=== PATIENT | female | born 2000 | race Caucasian/White ===

== ENCOUNTER 2020-04-29 03:52 | Emergency (ER) | payer BC ==
[2020-04-29 04:12] VITALS: BP 118/75
[2020-04-29 04:50] LABS: APPEARANCE,URINE CLEAR; BILIRUBIN,URINE NEGATIVE (NEGATIVE); COLOR,URINE STRAW; GLUCOSE, URINE NEGATIVE (NEGATIVE); KETONES,URINE NEGATIVE (NEGATIVE); LEUKOCYTE ESTERASE,URINE NEGATIVE (NEGATIVE); NITRITE,URINE NEGATIVE (NEGATIVE); PROTEIN,URINE NEGATIVE (NEGATIVE); URINE SPECIFIC GRAVITY 1.003; UROBILINOGEN,URINE NEGATIVE mg/dL (<2.0)
--- NOTE | 2020-04-29 07:38 | ER Document Report ---
ED Medical Screen (RME) - General Chief Complaint: Abdominal Pain Stated Complaint: STOMACH PAIN DIARRHEA POSSIBLE FEVER Time Seen by Provider: 04/29/20 07:29 - HPI Notes: Patient is a 19 y/o female who presents with diffuse abdominal pain for the past two weeks. She endorses nausea and diarrhea but denies vomiting, fever, and dysuria. She was seen by her primary care about a week ago for the same symptoms and was diagnosed with a UTI and placed on an antibiotic. Patient cannot recall the name of the antibiotic and she has only taken one dose as she picked the script up yesterday. - Related Data Allergies/Adverse Reactions: No Known Allergies Allergy (Unverified 04/29/20 04:12) Home Medications: ADD Past Medical History - Social History Frequency of alcohol use: None Drug Abuse: Marijuana Physical Exam - Vital signs Vitals: Temp Pulse Resp BP Pulse Ox 97.8 F 97 H 20 118/75 100 04/29/20 04:09 04/29/20 04:09 04/29/20 04:09 04/29/20 04:09 04/29/20 04:09 - Abdominal Inspection: Normal Distension: No distension Bowel sounds: Normal Tenderness: Tender - diffusely Course - Re-evaluation Re-evalutation: I have greeted and performed a rapid initial assessment of this patient. A comprehensive ED assessment and evaluation of the patient, analysis of test results and completion of medical decision making process will be conducted by an additional ED providers. - Vital Signs Vital signs: Temp Pulse Resp BP Pulse Ox 97.3 F 97 H 20 118/75 97 04/29/20 04:10 04/29/20 04:10 04/29/20 04:10 04/29/20 04:10 04/29/20 04:10
[2020-04-29 07:51] LABS: ABSOLUTE LYMPHOCYTES (AUTO) 1.7 10^3/uL (0.5-4.7); ABSOLUTE MONOCYTES (AUTO) 0.3 10^3/uL (0.1-1.4); BASOPHILS % (AUTO) 0.6 % (0-2); EOSINOPHILS % (AUTO) 0.1 % (0-6); HEMATOCRIT 43.8 % (36.0-47.0); HEMOGLOBIN 15.4 g/dL (12.0-15.5); LYMPHOCYTES % (AUTO) 21.4 % (13-45); MEAN CORPUSCULAR HEMOGLOBIN 30.9 pg (27.0-33.4); MEAN CORPUSCULAR HGB CONC 35.2 g/dL (32.0-36.0); MEAN CORPUSCULAR VOLUME 88 fl (80-97); PLATELET COUNT 292 10^3/uL (150-450); RED BLOOD COUNT 4.97 10^6/uL (3.72-5.28); RED CELL DISTRIBUTION WIDTH 12.7 % (11.5-14.0); SEGMENTED NEUTROPHILS % (AUTO) 73.9 % (42-78); TOTAL CELLS COUNTED % (AUTO) 100 %; WHITE BLOOD COUNT 8.1 10^3/uL (4.0-10.5)
[2020-04-29 08:07] LABS: ALBUMIN 5.3 g/dL (3.7-5.6); ALKALINE PHOSPHATASE 77 U/L (50-135); ANION GAP 13 (5-19); ASPARTATE AMINO TRANSFERASE 20 U/L (5-30); BILIRUBIN,TOTAL 0.7 mg/dL (0.2-1.3); BLOOD UREA NITROGEN 6 mg/dL (7-20); CALCIUM 10.8 mg/dL (8.4-10.2); CARBON DIOXIDE 23 mmol/L (22-30); CHLORIDE 106 mmol/L (98-107); GLUCOSE 111 mg/dL (75-110); POTASSIUM 4.3 mmol/L (3.6-5.0); TOTAL PROTEIN 8.6 g/dL (6.3-8.2)
--- NOTE | 2020-04-29 09:05 | ER Document Report ---
ED General - General Chief Complaint: Abdominal Pain Stated Complaint: STOMACH PAIN DIARRHEA POSSIBLE FEVER Time Seen by Provider: 04/29/20 07:29 Mode of Arrival: Ambulatory Information source: Patient - HPI Notes: Patient complains of abdominal pain. It is primarily epigastric. It does radiate from the epigastric area down into the lower quadrants. Nothing makes it better or worse. It has been going on for a little over a week and is relatively constant. Last night became worse so she came to the hospital. She states she does not have any problem with her menstrual cycles and is currently on control which causes her to not have menstrual cycles. She states that she was diagnosed with a urinary tract infection 1 week ago but did not start antibiotics till yesterday. She does however deny any type of dysuria urgency or frequency. She has had no fevers. No cough cold or congestion. No significant past medical history or surgeries. She does not believe that she is . She states that when she gets lower abdominal cramping that does give her diarrhea. She has had some nausea but no vomiting. She has had a decreased appetite. - Related Data Allergies/Adverse Reactions: No Known Allergies Allergy (Unverified 04/29/20 04:12) Home Medications: ADD Past Medical History - General Information source: Patient - Social History Smoking Status: Never Smoker Frequency of alcohol use: None Drug Abuse: Marijuana Family History: Reviewed & Not Pertinent Review of Systems - Review of Systems Constitutional: denies: Chills, Fever Cardiovascular: denies: Chest pain, Palpitations Respiratory: denies: Cough, Short of breath, Sputum -: Yes All other systems reviewed and negative Physical Exam - Vital signs Vitals: Temp Pulse Resp BP Pulse Ox 97.8 F 97 H 20 118/75 100 04/29/20 04:09 04/29/20 04:09 04/29/20 04:09 04/29/20 04:09 04/29/20 04:09 Interpretation: Normal - General General appearance: Appears well, Alert - HEENT Head: Normocephalic, Atraumatic Eyes: Normal Pupils: PERRL - Respiratory Respiratory status: No respiratory distress Chest status: Nontender Breath sounds: Normal Chest palpation: Normal - Cardiovascular Rhythm: Regular Heart sounds: Normal auscultation Murmur: No - Abdominal Inspection: Normal Distension: No distension Bowel sounds: Normal Tenderness: Tender - Minimal diffuse tenderness to palpation no rebound or guarding. Organomegaly: No organomegaly - Back Back: Normal, Nontender - Extremities General upper extremity: Normal inspection, Nontender, Normal color, Normal ROM, Normal temperature General lower extremity: Normal inspection, Nontender, Normal color, Normal ROM, Normal temperature, Normal weight bearing. No: Reggie's sign - Neurological Neuro grossly intact: Yes Cognition: Normal Orientation: AAOx4 [place] Coma Scale Eye Opening: Spontaneous [place] Coma Scale Verbal: Oriented [place] Coma Scale Motor: Obeys Commands [place] Coma Scale Total: 15 Speech: Normal Motor strength normal: LUE, RUE, LLE, RLE Sensory: Normal - Psychological Associated symptoms: Normal affect, Normal mood - Skin Skin Temperature: Warm Skin Moisture: Dry Skin Color: Normal Course - Re-evaluation Re-evalutation: 04/29/20 10:56 Patient comes in with a week of intermittent abdominal pain that is worsening. She is also had some nausea and some diarrhea. She does have stones in her gallbladder however there are no signs of cholecystitis. It is possible this is biliary colic. I will discharge the patient home with referral to outpatient surgery as well as some instructions on gallbladder disease. - Vital Signs Vital signs: Temp Pulse Resp BP Pulse Ox 97.3 F 97 H 20 118/75 97 04/29/20 04:10 04/29/20 04:10 04/29/20 04:10 04/29/20 04:10 04/29/20 04:10 - Laboratory Result Diagrams: 04/29/20 07:27 04/29/20 07:27 Laboratory results interpreted by me: 04/29/20 07:27 BUN 6 L Glucose 111 H Calcium 10.8 H Total Protein 8.6 H - Diagnostic Test Radiology reviewed: Image reviewed, Reports reviewed Discharge - Discharge Clinical Impression: Biliary colic Condition: Stable Disposition: HOME, SELF-CARE Instructions: Gallbladder Disease ([facility]) Prescriptions: Ondansetron [Zofran Odt 4 mg Tablet] 1 - 2 tab PO Q4HP PRN #10 tab.rapdis PRN Reason: Tramadol HCl [Ultram] 50 mg PO Q6 PRN 3 Days #12 tablet PRN Reason: Forms: Return to Work Referrals: RUBIA BURTON MD [ACTIVE STAFF] - Follow up in 1 week
--- NOTE | 2020-04-29 09:28 | RADIOLOGY REPORT (SQ) ---
EXAM DESCRIPTION: CT ABD/PELVIS NO ORAL OR IV IMAGES COMPLETED DATE/TIME: 04/29/2020 9:02 am REASON FOR STUDY: diffuse abd pain/diarrhea COMPARISON: None. TECHNIQUE: CT scan of the abdomen and pelvis performed without intravenous or oral contrast. Images reviewed with lung, soft tissue, and bone windows. Reconstructed coronal and sagittal MPR images revi ewed. All images stored on PACS. All CT scanners at this facility use dose modulation, iterative reconstruction, and/or weight based d osing when appropriate to reduce radiation dose to as low as reasonably achievable (ALARA). [facility]: Dose Right [facility]: CareDose [facility]: Dose Right [facility]: Teradose 4D [facility]: Smart Simparel RADIATION DOSE: CT Rad equipment meets quality standard of care and radiation dose reduction techniq ues were employed. CTDIvol: 3.7 mGy. DLP: 179 mGy-cm.mGy. LIMITATIONS: None. FINDINGS: LOWER CHEST: No significant findings. No nodules or infiltrates. NON-CONTRASTED LIVER, SPLEEN, ADRENALS: Evaluation limited by lack of IV contrast. No identified sign ificant masses. PANCREAS: No masses. No peripancreatic inflammatory changes. GALLBLADDER: Diffuse increased density in the gallbladder. No inflammatory changes to suggest cholecy stitis. RIGHT KIDNEY AND URETER: No suspicious masses. Assessment limited by lack of IV contrast. No signif icant calcifications. No hydronephrosis or hydroureter. LEFT KIDNEY AND URETER: No suspicious masses. Assessment limited by lack of IV contrast. No signifi cant calcifications. No hydronephrosis or hydroureter. AORTA AND RETROPERITONEUM: No aneurysm. No retroperitoneal masses or adenopathy. BOWEL AND PERITONEAL CAVITY: No obvious masses or inflammatory changes. No free fluid. APPENDIX: Normal. PELVIS, BLADDER, AND ABDOMINAL WALL:No abnormal masses. No free fluid. Bladder normal. BONES: No significant findings. OTHER: No other significant finding. IMPRESSION: 1. DIFFUSE INCREASED DENSITY IN THE GALLBLADDER WHICH MAY BE DUE TO SLUDGE AND/OR MULTIPLE SMALL STON ES. 2. NO OTHER SIGNIFICANT OR ACUTE PROCESS IN THE ABDOMEN OR PELVIS. COMMENT: Quality ID # [id number]: Final reports with documentation of one or more dose reduction techniques (e.g., Automated exposure control, adjustment of the mA and/or kV according to patient size, use of iterative reconstruction technique) TECHNICAL DOCUMENTATION: JOB ID: [id number] 2010 [employer]- All Rights Reserved Reading location - IP/workstation name: [email or web address]
--- NOTE | 2020-04-29 10:43 | RADIOLOGY REPORT (SQ) ---
EXAM DESCRIPTION: U/S ABDOMEN LIMITED W/O DOP IMAGES COMPLETED DATE/TIME: 04/29/2020 10:31 am REASON FOR STUDY: ruq pain COMPARISON: None. TECHNIQUE: Dynamic and static grayscale images acquired of the abdomen and recorded on PACS. Additio nal selected color Doppler and spectral images recorded. LIMITATIONS: None. FINDINGS: PANCREAS: No masses. Visualized pancreatic duct normal caliber. LIVER: No masses. Echotexture normal. LIVER VASCULATURE: Normal directional flow of the main portal vein and hepatic veins. GALLBLADDER: Limited visualization. Multiple shadowing calculi. No gallbladder wall thickening. No pericholecystic fluid. ULTRASOUND-DETECTED PEREZ'S SIGN: Negative. INTRAHEPATIC DUCTS AND COMMON DUCT: CBD and intrahepatic ducts normal caliber. No filling defects. INFERIOR VENA CAVA: Normal flow. AORTA: No aneurysm. RIGHT KIDNEY: Normal size. Normal echogenicity. No solid or suspicious masses. No hydronephrosis. No calcifications. PERITONEAL AND RIGHT PLEURAL SPACE: No ascites or effusions. OTHER: No other significant findings. IMPRESSION: GALLSTONES. NO OTHER SIGNIFICANT FINDINGS. TECHNICAL DOCUMENTATION: JOB ID: [id number] 2010 [employer]- All Rights Reserved Reading location - IP/workstation name: [email or web address]
== END 2020-04-29 11:23 | disposition home or self-care (01) ==
LOC: ER 03:52
DX: K80.20 Calculus of gallbladder without cholecystitis without obstruction (principal); N39.0 Urinary tract infection, site not specified; R11.0 Nausea; R19.7 Diarrhea, unspecified; F12.10 Cannabis abuse, uncomplicated; Z79.3 Long term (current) use of hormonal contraceptives; Z79.899 Other long term (current) drug therapy
CPT/HCPCS: 36415; 74176; 76705; 80053; 81001; 83690; 84702; 85025; 87086; 99285

== ENCOUNTER 2020-05-07 09:06 | Day surgery (SDC) | payer BC ==
[~2020-05-07 09:06] MED LIST: ACETAMINOPHEN 325 MG TABLET PO PRN; CEFAZOLIN 2 GM/D5W RTU 2 GM/50 ML RTUPB IV PRN; METRONIDAZOLE 500 MG/NS RTU 500 MG/100 ML RTUPB IV PRN
[2020-05-07] MEDS ORDERED: CEFAZOLIN 2 GM/D5W RTU 2 GM/50 ML RTUPB IV ONE (09:57)
[2020-05-07] MEDS ORDERED: METRONIDAZOLE 500 MG/NS RTU 500 MG/100 ML RTUPB IV ONE (09:57)
[2020-05-07] MEDS ORDERED: BUPIVACAINE INJ/PF LIPOSOME/PF 266 MG/20 ML SDV ONE (10:08)
[2020-05-07 10:10] LABS: ABSOLUTE BASOPHILS # (AUTO) 0.1 10^3/uL (0.0-0.2); ABSOLUTE MONOCYTES (AUTO) 0.4 10^3/uL (0.1-1.4); ABSOLUTE NEUT (AUTO) 3.6 10^3/uL (1.7-8.2); BASOPHILS % (AUTO) 0.9 % (0-2); EOSINOPHILS % (AUTO) 0.4 % (0-6); HEMATOCRIT 40.1 % (36.0-47.0); HEMOGLOBIN 13.9 g/dL (12.0-15.5); LYMPHOCYTES % (AUTO) 33.6 % (13-45); MEAN CORPUSCULAR HEMOGLOBIN 30.5 pg (27.0-33.4); MEAN CORPUSCULAR HGB CONC 34.8 g/dL (32.0-36.0); MEAN CORPUSCULAR VOLUME 88 fl (80-97); MONOCYTES % (AUTO) 6.2 % (3-13); PLATELET COUNT 240 10^3/uL (150-450); RED BLOOD COUNT 4.58 10^6/uL (3.72-5.28); RED CELL DISTRIBUTION WIDTH 12.4 % (11.5-14.0); SEGMENTED NEUTROPHILS % (AUTO) 58.9 % (42-78); TOTAL CELLS COUNTED % (AUTO) 100 %
[2020-05-07] MEDS ORDERED: MIDAZOLAM 2 MG/2 ML INJ ONE (10:10)
[2020-05-07] MEDS ORDERED: FENTANYL CITRATE INJ/PF 250 MCG/5 ML AMPULE ONE (10:10)
[2020-05-07] MEDS ORDERED: PROPOFOL INJ 200 MG/20 ML VIAL IV ONE (10:10)
[2020-05-07 10:27] LABS: ALKALINE PHOSPHATASE 63 U/L (50-135); AMYLASE 66 U/L (30-110); ANION GAP 13 (5-19); ASPARTATE AMINO TRANSFERASE 32 U/L (5-30); BILIRUBIN,TOTAL 0.7 mg/dL (0.2-1.3); BLOOD UREA NITROGEN 10 mg/dL (7-20); CALCIUM 10.3 mg/dL (8.4-10.2); CARBON DIOXIDE 23 mmol/L (22-30); CHLORIDE 105 mmol/L (98-107); GLUCOSE 91 mg/dL (75-110); POTASSIUM 4.3 mmol/L (3.6-5.0); TOTAL PROTEIN 7.9 g/dL (6.3-8.2)
[2020-05-07] MEDS ORDERED: MEPERIDINE HCL/PF INJ 25 MG/1 ML DISP.SYRIN IV PRN (11:03)
[2020-05-07] MEDS ORDERED: DIPHENHYDRAMINE HCL 50 MG/ML VIAL IV PRN (11:03)
[2020-05-07] MEDS ORDERED: MORPHINE SULFATE 10 MG/ML INJ IV PRN (11:03)
[2020-05-07] MEDS ORDERED: FENTANYL CITRATE INJ/PF 100 MCG/2 ML AMPUL IV PRN ×3 (11:03)
[2020-05-07] MEDS ORDERED: PROMETHAZINE HCL INJ 25 MG/1 ML VIAL IV PRN ×2 (11:03)
--- NOTE | 2020-05-07 11:19 | Operative Report ---
Nonrecallable Operative Report DATE OF SURGERY: 05/07/20 PREOPERATIVE DIAGNOSIS: Symptomatic cholelithiasis POSTOPERATIVE DIAGNOSIS: Same OPERATION: Laparoscopic cholecystectomy SURGEON: MALAIKA GARCIA ANESTHESIA: GA TISSUE REMOVED OR ALTERED: Gallbladder COMPLICATIONS: None ESTIMATED BLOOD LOSS: 10 cc INTRAOPERATIVE FINDINGS: See note PROCEDURE: After obtaining informed consent, the patient was taken to the operating room. General Anesthesia was induced; the arms were extended, and the abdomen was exposed, and prepped and draped in a sterile fashion. Instrumentation was set up for laparoscopic cholecystectomy. Surgical plan and surgical timeout were conducted. A vertical incision was made above the umbilicus, and a verres needle was inserted uneventfully into the peritoneal cavity. Pneumoperitoneum was established. The verres needle was removed and a 10 mm trocar was inserted and a 10 mm laparoscope was inserted. Visualization of the peritoneal cavity confirmed safe uneventful entry. Under direct visualization 3 additional 5 mm ports were established, one in the subxiphoid position and second in the subcostal position. Visualization of the hepatobiliary anatomy revealed no anatomic variations. A grasper was placed on the fundus of the gallbladder and the gall bladder is elevated over the right surface of the liver; a second grasper was used to grasp the infundibulum of the gallbladder. The neck of the gallbladder and junction with the cystic duct was dissected out. The Cystic artery was in its usual location medial and cephalad to the cystic duct. The cystic artery was surrounded with a right angle clamp, clipped twice proximally and divided with laparoscopic scissors. We now opened the triangle of Calot by dividing the peritoneal reflection on both the medial and lateral sides of the cystic duct infundibular junction. The critical view was obtained. We now milked the cystic duct of any possible stones, clipped the cystic duct approximately 2 times once distally and divided with scissors. The gallbladder was now removed from the undersurface of the liver using hook cautery dissection. Graspers were repositioned and the gallbladder was removed uneventfully from the abdominal cavity through the super umbilical port site incision. The specimen was examined, then passed off to pathology for permanent analysis. We returned to the peritoneal cavity check for bleeding, and evidence of bile leak, and there was none. We Confirmed satisfactory placement of clips on cystic duct and cystic artery were secured . At this point we felt the operation was complete. The subcutaneous tissue was then anesthetized with quarter percent Marcaine Sponge and needle counts are correct. All ports removed under direct visualization pneumoperitoneum evacuated, and 5 mm port wounds closed with 3-0 Vicryl suture, benzoin and Steri-Strips. The patient was extubated, and taken to the recovery room in stable condition.
--- NOTE | 2020-05-07 11:21 | Discharge Summary ---
Discharge Summary (SDC) - Discharge Final Diagnosis: Symptomatic cholelithiasis Date of Surgery: 05/07/20 Discharge Date: 05/07/20 Condition: Good Prescriptions: Tramadol HCl [Ultram 50 mg Tablet] 50 mg PO ASDIR PRN #20 tablet PRN Reason: Discharge Diet: As Tolerated Discharge Activity: Activity As Tolerated, No Lifting Over 10 Pounds Report the Following to Your Physician Immediately: Increase in Pain - Needs a follow-up appointment with me in 7 to 10 days, Yellow Skin
[2020-05-07] MEDS ORDERED: TRAMADOL HCL 50 MG TABLET PO PRN (11:22)
[2020-05-07] MEDS ORDERED: PROMETHAZINE HCL INJ 25 MG/1 ML VIAL ONE (11:39)
[2020-05-07] MEDS: FENTANYL CITRATE INJ/PF 100 MCG/2 ML AMPUL ONE ×3 (11:40→11:50)
[2020-05-07] MEDS ORDERED: TRAMADOL HCL 50 MG TABLET ONE (13:28)
[2020-05-07] MEDS ORDERED: TRAMADOL HCL 50 MG TABLET PO ONE (14:00)
[2020-05-07] MEDS ORDERED: ACETAMINOPHEN 1,000 MG/100 ML RTUPB IV ONE (14:32)
[2020-05-07 15:54] VITALS: BP 117/74
[2020-05-07] MEDS ORDERED: ROCURONIUM BROMIDE INJ 50 MG/5 ML VIAL IV ONE (16:03)
[2020-05-07] MEDS ORDERED: GLYCOPYRROLATE 1 MG/5 ML VIAL ONE (16:03)
[2020-05-07] MEDS ORDERED: ONDANSETRON HCL INJ/PF 4 MG/2 ML SDV ONE (16:03)
[2020-05-07] MEDS ORDERED: NEOSTIGMINE METHYLSULFATE 10 MG/10 ML VIAL ONE (16:03)
--- OUTSIDE RECORDS SUMMARY | 2020-05-08 18:17 | XMS REPORT ---
:2000 Author Organization [facility] Address [facility] [place] [address] [place] [id number] Care Team Providers Name Role Phone Unavailable Unavailable Unavailable Allergies, Adverse Reactions, Alerts This patient has no known allergies or adverse reactions. Medications This patient has no known medications. Problems This patient has no known problems. Procedures This patient has no known procedures. Results Test Description Test Time Test Comments Text Results Atomic Results Result Comments SED RATE BY MODIFIED SOSA 2020-04-24 00:00:00 2 CBC (INCLUDES DIFF/PLT) 2020-04-24 00:00:00 Test Item Value Reference Range Comments HEMOGLOBIN (test code = 29343656) 14.8 g/dL 11.7-15.5 MCHC (test code = 17176579) 32.6 g/dL 32.0-36.0 ABSOLUTE EOSINOPHILS (test code = 91375158) 40 cells/uL 15-5 00 RDW (test code = 76119713) 12.0 % 11.0-15.0 EOSINOPHILS (test code = 53148188) 0.6 % RED BLOOD CELL COUNT (test code = 80805209) 4.96 Million/uL 3.80 -5.10 ABSOLUTE BASOPHILS (test code = 68729044) 73 cells/uL 0-200 MCV (test code = 70553896) 91.5 fL 80.0-100.0 NEUTROPHILS (test code = 67017423) 57.3 % MPV (test code = 76514998) 10.8 fL 7.5-12.5 ABSOLUTE MONOCYTES (test code = 11873523) 389 cells/uL 200-95 0 HEMATOCRIT (test code = 69886651) 45.4 % 35.0-45.0 ABSOLUTE NEUTROPHILS (test code = 57340077) 3782 cells/uL 1500 -7800 LYMPHOCYTES (test code = 69106947) 35.1 % ABSOLUTE LYMPHOCYTES (test code = 49150248) 2317 cells/uL 850- 3900 BASOPHILS (test code = 62818572) 1.1 % PLATELET COUNT (test code = 50936182) 300 Thousand/uL 140-400 MCH (test code = 78595410) 29.8 pg 27.0-33.0 WHITE BLOOD CELL COUNT (test code = 66405903) 6.6 Thousand/uL 3. 8-10.8 MONOCYTES (test code = 81448143) 5.9 % URINALYSIS, COMPLETE W/REFLEX TO [id number] 00:00:00 Test Item Value Reference Range Comments LEUKOCYTE ESTERASE (test code = 97443895) TRACE NEGATI VE HYALINE CAST (test code = 06462086) NONE SEEN /LPF NONE SEEN APPEARANCE (test code = 47671865) CLEAR CLEAR RBC (test code = 02245799) 0-2 /HPF < OR = 2 WBC (test code = 67147534) 0-5 /HPF < OR = 5 NITRITE (test code = 73121916) POSITIVE NEGATIVE BACTERIA (test code = 91199301) MANY /HPF NONE SEEN KETONES (test code = 60472542) TRACE NEGATIVE OCCULT BLOOD (test code = 99419443) NEGATIVE NEGATIVE SPECIFIC GRAVITY (test code = 18098385) 1.023 1.001-1. 035 COLOR (test code = 44977776) DARK YELLOW YELLOW BILIRUBIN (test code = 65347218) NEGATIVE NEGATIVE PH (test code = 81808589) 6.0 5.0-8.0 PROTEIN (test code = 39794-5) NEGATIVE NEGATIVE SQUAMOUS EPITHELIAL CELLS (test code = 6-10 /HPF < OR = 5 00918691) GLUCOSE (test code = 37689910) NEGATIVE NEGATIVE C-REACTIVE [id number] 00:00:000.2COMPREHENSIVE METABOLIC [id number] 00:00:00 Test Item Value Reference Range Comments SODIUM (test code = 03617891) 140 mmol/L 135-146 ALT (test code = 87122560) 9 U/L 5-32 GLOBULIN (test code = 59882976) 2.9 g/dL (calc) 2.0-3.8 CHLORIDE (test code = 07366869) 103 mmol/L 98-110 BILIRUBIN, TOTAL (test code = 0.8 mg/dL 0.2-1.1 54446893) POTASSIUM (test code = 30951586) 4.6 mmol/L 3.8-5.1 AST (test code = 54524178) 14 U/L 12-32 eGFR (test code = 117 mL/min/1.73m2 > OR = 60 89855214) UREA NITROGEN (BUN) (test code = 8 mg/dL 7-20 79651723) ALKALINE PHOSPHATASE (test code = 68 U/L 36-128 76212398) eGFR NON-AFR. WELSH (test code = 101 mL/min/1.73m2 > OR = 60 62328074) ALBUMIN/GLOBULIN RATIO (test code = 1.7 (calc) 1.0-2.5 20111576) PROTEIN, TOTAL (test code = 49464403) 7.9 g/dL 6.3-8.2 ALBUMIN (test code = 31051977) 5.0 g/dL 3.6-5.1 CREATININE (test code = 52758139) 0.84 mg/dL 0.50-1.00 CARBON DIOXIDE (test code = 54343093) 27 mmol/L 20-32 BUN/CREATININE RATIO (test code = NOT APPLICABLE (calc) 6-22 07616770) GLUCOSE (test code = 76223151) 95 mg/dL 65-99 CALCIUM (test code = 69641950) 10.5 mg/dL 8.9-10.4 [id number] 00:00:0011 Social History This patient has no known social history. Vital Signs This patient has no known vital signs.
== END 2020-05-07 15:00 | disposition home or self-care (01) ==
LOC: OROUT 09:06
PROVIDERS: ATTEND Surgery
DX: K80.10 Calculus of gallbladder with chronic cholecystitis without obstruction (principal); Z03.818 Encounter for observation for suspected exposure to other biological agents ruled out; F12.90 Cannabis use, unspecified, uncomplicated; R10.9 Unspecified abdominal pain
CPT/HCPCS: 47562; 86900; 86901; 36415; 86850; 82150; 85025; 81025; 80076; 80048; 88304 ×2; 00790; U0003; J2250; J3490 ×3; J3010 ×2; J2710; J2550; J2405; J2704; J0690; J0131; C9290; C9803; 790; 87635